=== PATIENT | male | born 1955 | race Caucasian/White ===

== ENCOUNTER 2020-06-07 09:51 | Emergency (ER) | payer OTHER, SELFPAY ==
[2020-06-07 09:56] VITALS: BP 148/78; PULSE 77; RESP 16; TEMP 36.6; O2SAT 97
--- NOTE | 2020-06-07 10:02 | ED.GENADULT ---
HPI - General Adult General Chief complaint: Ear Stated complaint: left ear drainage Time Seen by Provider: 06/07/20 10:02 Source: patient and RN notes reviewed Mode of arrival: ambulatory Limitations: no limitations History of Present Illness HPI narrative: 64-year-old male presents with complaints of left ear pain, and itching for the past 3-4 days. No treatment. Symptoms increased over the past 24 hours with drainage. Denies swimming or getting water into ear. Denies trouble hearing. Denies URI symptoms, No high fevers or chills. Denies injury to the ear. No nasal drainage and congestion. Denies nausea, vomiting, tinnitus, and dizziness. The patient reports he have not been diagnosed with COVID-19. The patient reports he is not waiting for the results of a COVID-19 lab test. The patient reports he do not have fever, chills, weakness, fatigue, myalgia, or facial swelling. The patient reports he do not have a new or worsening cough or shortness of breath. Denies chest pain. The patient reports he do not have any rhinorrhea, congestion, sore throat, nausea, vomiting, abdominal pain, and diarrhea. Tolerating po intake well. Denies recent traveling. Denies concerns for COVID-19 or exposures been home with limited outdoor exposure except for essential household needs, work, and return home. At this time, patient is not suspected of having COVID-19. Some parts of this dictation were generated by voice recognition software and may contain typographical and/or grammatical inaccuracies. Related Data Home Medications Medication Instructions Recorded Confirmed No Home Medications 06/07/20 06/07/20 Allergies Allergy/AdvReac Type Severity Reaction Status Date / Time No Known Allergies Allergy Unverified 01/25/19 14:22 Review of Systems Review of Systems: Narrative: CONSTITUTIONAL: Denies fever, chills, sweats. EYES: Denies visual changes, redness, discharge. ENT: Denies rhinorrhea, congestion, sore throat . Complains of LT otalgia, drainage, and itching. CARDIOVASCULAR: Denies chest pain, palpitations, edema. RESPIRATORY: Denies dyspnea, wheezing, cough. GASTROINTESTINAL: Denies abdominal pain, nausea, vomiting, diarrhea. GENITOURINARY: Denies dysuria, hematuria, abnormal discharge. SKIN: Denies rash or itching. MUSCULOSKELETAL: Denies acute back pain, joint pain, or myalgia. NEUROLOGIC: Denies numbness or focal weakness. PSYCHIATRIC: Denies anxiety or depression. All systems reviewed & are unremarkable except as noted in HPI and below. [facility] Past Medical History Medical History (Updated 06/07/20 @ 10:35 by TENISHA Dodson) Fracture of right elbow Surgical History Surgical History (Updated 06/07/20 @ 10:35 by TENISHA Dodson) History of arthroscopic knee surgery LT knee for cartilage removal History of elbow surgery RT arm Family History Family History (Updated 06/07/20 @ 10:36 by TENISHA Dodson) Father , [place] Acute myocardial infarction Heart disease Mother , Natural causes No problems noted. Social History Social History (Updated 06/07/20 @ 10:36 by TENISHA Dodson) Smoking status: Never smoker Second hand tobacco smoke exposure: No Alcohol intake: current Alcohol use details: Occasional Living arrangements: with family Occupation/Education: occupation Gender identity (if verbalized by the patient): Male Comments At time of signature, I have reviewed and agree with nursing past medical, surgical, social, and family history. Please see nursing chart for further information. There is no relevant family history pertinent to the presenting complaint. Exam Narrative: Exam Narrative: GENERAL: This is a well-nourished, well-developed patient, in no apparent distress. Talks in full sentences and ambulates with steady gait without dyspnea HEAD: normocephalic, atraumatic. EYES: PERRL. Sclera clear/white. Vision is
== END 2020-06-07 10:14 | disposition home or self-care (01) ==
PROVIDERS: Emergency Provider Nurse Practitioner Family
DX: H60.392 Other infective otitis externa, left ear (principal)
CPT/HCPCS: 99213; G0463

== ENCOUNTER 2020-07-05 10:15 | Emergency (ER) | payer OTHER, SELFPAY ==
[2020-07-05 10:15] VITALS: BP 142/95; PULSE 79; RESP 20; TEMP 36.7; O2SAT 97
--- NOTE | 2020-07-05 10:31 | ED.GENADULT ---
HPI - General Adult General Chief complaint: Upper Respiratory Infection Stated complaint: ear pain Time Seen by Provider: 07/05/20 10:31 Source: patient and RN notes reviewed Mode of arrival: ambulatory Limitations: no limitations History of Present Illness HPI narrative: 64-year-old male presents with complaints of left ear pressure, decrease hearing, itching, and drainage from for the past 28 days. Pedro was treated here at the [facility] on 06/07/20 for Otits Extrena with Ciprofloxacin HCL 0.3% with some improvement per him. 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 Denies swimming or getting water into ear. Denies URI symptoms, No high fevers or chills. Denies injury to the ear. No nasal drainage and congestion. Denies nausea, vomiting, tinnitus, and dizziness. The patient reports he have not been diagnosed with COVID-19. The patient reports he is not waiting for the results of a COVID-19 lab test. The patient reports he do not have fever, chills, weakness, fatigue, myalgia, or facial swelling. The patient reports he do not have a new or worsening cough or shortness of breath. Denies chest pain. The patient reports he do not have any rhinorrhea, congestion, sore throat, nausea, loss of taste, vomiting, abdominal pain, and diarrhea. Tolerating po intake well. Denies recent traveling. Denies concerns for COVID-19 or exposures been home with limited outdoor exposure except for essential household needs, work, and return home. At this time, patient is not suspected of having COVID-19. Some parts of this dictation were generated by voice recognition software and may contain typographical and/or grammatical inaccuracies. Related Data Allergies Allergy/AdvReac Type Severity Reaction Status Date / Time No Known Allergies Allergy Verified 07/05/20 10:18 Review of Systems Review of Systems: Narrative: CONSTITUTIONAL: Denies fever, chills, sweats. EYES: Denies visual changes, redness, discharge. ENT: Denies rhinorrhea, congestion, sore throat. Complains of LT otalgia, drainage, pressure, decrease hearing, and itching. CARDIOVASCULAR: Denies chest pain, palpitations, edema. RESPIRATORY: Denies dyspnea, wheezing, cough. GASTROINTESTINAL: Denies abdominal pain, nausea, vomiting, diarrhea. GENITOURINARY: Denies dysuria, hematuria, abnormal discharge. SKIN: Denies rash or itching. MUSCULOSKELETAL: Denies acute back pain, joint pain, or myalgia. NEUROLOGIC: Denies numbness or focal weakness. PSYCHIATRIC: Denies anxiety or depression. All systems reviewed & are unremarkable except as noted in HPI and below PMFSH Past Medical History Medical History Fracture of right elbow Surgical History Surgical History History of arthroscopic knee surgery LT knee for cartilage removal History of elbow surgery RT arm Family History Family History Father , [place] Acute myocardial infarction Heart disease Mother , Natural causes No problems noted. Social History Social History Smoking status: Never smoker Second hand tobacco smoke exposure: No Alcohol intake: current Gender identity (if verbalized by the patient): Male Comments At time of signature, I have reviewed and agree with nursing past medical, surgical, social, and family history. Please see nursing chart for further information. There is no relevant family history pertinent to the presenting complaint. Exam Narrative: Exam Narrative: GENERAL: This is a well-nourished, well-developed patient, in no apparent distress. Talks in full sentences and ambulates with steady gait without dyspnea HEAD: normocephalic, atraumatic. EYES:
== END 2020-07-05 11:46 | disposition home or self-care (01) ==
PROVIDERS: Emergency Provider Nurse Practitioner Family
DX: B36.9 Superficial mycosis, unspecified (principal); H62.42 Otitis externa in other diseases classified elsewhere, left ear; H61.22 Impacted cerumen, left ear
CPT/HCPCS: 69210; 99213; G0463

== ENCOUNTER 2022-10-30 18:21 | Emergency (ER) | payer OTHER, SELFPAY ==
[2022-10-30 18:28] VITALS: BP 164/99; PULSE 73; RESP 16; TEMP 36.3; O2SAT 99
--- NOTE | 2022-10-30 19:43 | ED.GENADULT ---
HPI - General Adult General Chief complaint: Skin/Abscess/Foreign Body Stated complaint: rash Source: patient Mode of arrival: ambulatory Limitations: no limitations History of Present Illness HPI narrative: PATIENT PRESENTS FOR EVALUATION OF PRURITIC RASH TO HIS TORSO AND EXTREMITIES X4. SYMPTOM ONSET LAST MONDAY. NO NEW LOTIONS, SOAPS, DETERGENTS, TOPICAL PRODUCTS. NO NEW MEDICATIONS. NO NEW FOODS. HE PLAYED SOME LOTION WITHOUT CONSIDERABLE IMPROVEMENT IN HIS SYMPTOMS OR AFTER. NO HISTORY OF SIMILAR SYMPTOMS. DENIES DIFFICULTY BREATHING OR SWALLOWING. HE CONSIDERED TAKING BENADRYL BUT DID NOT DO SO. NO UNDERLYING MEDICAL PROBLEMS. HE HAS NOT TRAVELED OR STAYED IN OTHER BEDS PLACING HIM AT RISK FOR BED BUGS. HE STATES HIS PET DOES NOT HAVE FLEAS. NO ADDITIONAL COMPLAINTS OR CONCERNS. Related Data Allergies Allergy/AdvReac Type Severity Reaction Status Date / Time No Known Allergies Allergy Verified 08/20/20 13:24 Review of Systems Review of Systems: CONSTITUTIONAL: DENIES FEVER, CHILLS, OR SWEATS. EYES: DENIES VISUAL CHANGES, REDNESS, OR DISCHARGE. ENT: DENIES RHINORRHEA, CONGESTION, SORE THROAT, OR OTALGIA. CARDIOVASCULAR: DENIES CHEST PAIN, PALPITATIONS, OR EDEMA. RESPIRATORY: DENIES COUGH OR DYSPNEA. GASTROINTESTINAL: DENIES ABDOMINAL PAIN, NAUSEA, VOMITING, OR DIARRHEA. GENITOURINARY: DENIES DYSURIA OR HEMATURIA. SKIN: REPORTS PRURITIC RASH TO TORSO AND EXTREMITIES X4 MUSCULOSKELETAL: DENIES BACK PAIN, JOINT PAIN, OR MYALGIA. NEUROLOGIC: DENIES HEADACHE, NUMBNESS, DIZZINESS, OR WEAKNESS. PSYCHIATRIC: DENIES ANXIETY OR DEPRESSION. [facility] Past Medical History Medical History Fracture of right elbow Surgical History Surgical History History of arthroscopic knee surgery LT knee for cartilage removal History of elbow surgery RT arm Family History Family History Father , [place] Acute myocardial infarction Heart disease Mother , Natural causes No problems noted. Social History Social History Smoking status: Never smoker Second hand tobacco smoke exposure: No Alcohol intake: current Alcohol use details: Occasional Substance use: never Gender identity (if verbalized by the patient): Male Sexual Orientation (if Verbalized by the Patient): Straight or Heterosexual Exam Narrative: GENERAL: WELL-APPEARING, WELL-NOURISHED, AND IN NO ACUTE DISTRESS. HEAD: NORMOCEPHALIC, ATRAUMATIC. EYES: PERRLA AND EOMI. ENT: NARES CLEAR, NO RHINORRHEA OR EPISTAXIS. MUCOUS MEMBRANES MOIST. OROPHARYNX WITHOUT TONSILLAR HYPERTROPHY EXUDATE OR OTHER LESIONS. BILATERAL TMS PEARLY DAO NONBULGING NECK: SUPPLE. NO ADENOPATHY OR MASSES. NO CAROTID BRUITS OR JVD CHEST: CLEAR TO AUSCULTATION. NO RESPIRATORY DISTRESS. NO WHEEZES RALES OR RHONCHI HEART: REGULAR RATE AND RHYTHM. NO MURMUR HEARD. NORMAL PERIPHERAL PULSES. ABDOMEN: SOFT, NONTENDER, NONDISTENDED, NORMAL ACTIVE BOWEL SOUNDS. EXTREMITIES: NORMAL RANGE OF MOTION. NO EDEMA. SKIN: THERE ARE SCATTERED MACULES NOTED TO THE ABDOMEN, BACK, EXTREMITIES X4 NEURO: NO FOCAL DEFICITS. ALERT AND ORIENTED X3. PSYCH: NORMAL MOOD AND AFFECT. Course Course Emergency Course: THIS IS A 66-YEAR-OLD MALE PRESENTING FOR EVALUATION OF A PRURITIC RASH TO THE TORSO AND EXTREMITIES X4. HE HAS NO DIFFICULTY BREATHING OR SWELLING. ETIOLOGY OF SYMPTOMS UNCLEAR. GIVEN SOLU-MEDROL HERE. WILL DISCHARGE WITH PREDNISONE TO START TOMORROW AND VISTARIL. GO TO THE ER FOR DIFFICULTY BREATHING OR SWALLOWING. FOLLOW-UP WITH PRIMARY OTHERWISE. PATIENT IN AGREEMENT PLAN OF CARE. Level of Care: Express Care Visit Vital Signs Vital signs: Vital Signs Temperature 36.3 C L 10/30/22 18:28 Pulse Rate 73 10/30/22 18:28 Re
[2022-10-30] MEDS: methylPREDNISolone SOD SUCC 125 MG VIAL IM (19:44)
== END 2022-10-30 19:55 | disposition home or self-care (01) ==
PROVIDERS: Emergency Provider Nurse Practitioner
DX: R21 Rash and other nonspecific skin eruption (principal); T78.40XA Allergy, unspecified, initial encounter
CPT/HCPCS: 96372; 99213; G0463; J2930